=== PATIENT | female | born 1990 | race Caucasian/White ===

== ENCOUNTER 2017-02-12 19:11 | Emergency (ER) | payer OTHER ==
[2017-02-12 22:57] VITALS: BP 112/73
== END 2017-02-12 22:57 | disposition home or self-care (01) ==
LOC: ED 19:11
DX: H92.01 Otalgia, right ear (principal); R51 Headache; J45.909 Unspecified asthma, uncomplicated

== ENCOUNTER 2017-05-15 08:35 | Emergency (ER) | payer OTHER ==
[2017-05-15 10:32] LABS: BASOPHIL % 0.4 % (0-2); PLATELET COUNT 161 x10^3mcL (130-400); RED CELL DISTRIBUTION WIDTH 13.9 % (11.5-14.5)
[2017-05-15 10:34] LABS: microscopic required? YES; urine erythrocyte 3+ (NEGATIVE)
[2017-05-15 10:42] LABS: CALCIUM 9.1 mg/dL (8.5-10.1); CARBON DIOXIDE 28.5 mmol/L (21-32); CHLORIDE SERUM 105 mmol/L (98-107); CREATININE SERUM 0.7 mg/dL (0.6-1.0); GFR1 > 60 mL/min; GLUCOSE SERUM 85 mg/dL (74-106); POTASSIUM SERUM 3.7 mmol/L (3.5-5.1); SODIUM SERUM 142 mmol/L (136-145)
[2017-05-15 10:48] LABS: ALBUMIN 4.4 g/dL (3.4-5.0); ALKALINE PHOSPHATASE 71 U/L (46-116); ALT/SGPT 49 U/L (14-59); AST/SGOT 32 U/L (15-37); BILIRUBIN TOTAL 0.9 mg/dL (0.20-1.00); LIPASE 266 IU/L (73-393); TOTAL PROTEIN, SERUM 8.1 g/dL (6.4-8.2)
[2017-05-15 13:01] VITALS: BP 108/61
== END 2017-05-15 13:01 | disposition home or self-care (01) ==
LOC: ED 08:35
PROVIDERS: Emergency Medicine
DX: R10.33 Periumbilical pain (principal); R11.10 Vomiting, unspecified; R19.7 Diarrhea, unspecified; J45.909 Unspecified asthma, uncomplicated
CPT/HCPCS: J1885; J2405; J7030

== ENCOUNTER 2018-04-18 23:06 | Emergency (ER) | payer OTHER ==
[~2018-04-18] VITALS: Ht 157.5 cm; Wt 71.7 kg
[2018-04-18 23:11] VITALS: Ht 157.5 cm; Wt 71.7 kg
[2018-04-19 00:31] VITALS: BP 96/49
== END 2018-04-19 00:43 | disposition home or self-care (01) ==
LOC: ED 23:06
DX: S10.11XA Abrasion of throat, initial encounter (principal); J45.909 Unspecified asthma, uncomplicated; W22.8XXA Striking against or struck by other objects, initial encounter; Y93.89 Activity, other specified; Y92.89 Other specified places as the place of occurrence of the external cause; Y99.8 Other external cause status

== ENCOUNTER 2018-05-09 14:19 | Emergency (ER) | payer OTHER ==
[~2018-05-09] VITALS: Ht 157.5 cm; Wt 68.5 kg
[2018-05-09 15:00] VITALS: BP 107/57; Ht 157.5 cm; Wt 68.5 kg
== END 2018-05-09 18:51 | disposition home or self-care (01) ==
LOC: ED 14:19
DX: S39.012A Strain of muscle, fascia and tendon of lower back, initial encounter (principal); J45.909 Unspecified asthma, uncomplicated; X50.1XXA Overexertion from prolonged static or awkward postures, initial encounter; Y93.89 Activity, other specified; Y92.89 Other specified places as the place of occurrence of the external cause; Y99.8 Other external cause status
CPT/HCPCS: J1885

== ENCOUNTER 2018-08-01 00:19 | Emergency (ER) | payer OTHER ==
[~2018-08-01] VITALS: Ht 157.5 cm; Wt 72.1 kg
[2018-08-01 00:24] VITALS: Ht 157.5 cm; Wt 72.1 kg
[2018-08-01 04:29] LABS: BASOPHIL % 0.3 % (0-2); PLATELET COUNT 156 x10^3mcL (130-400); RED CELL DISTRIBUTION WIDTH 13.3 % (11.5-14.5)
[2018-08-01 04:32] LABS: CALCIUM 8.7 mg/dL (8.5-10.1); CARBON DIOXIDE 30.1 mmol/L (21-32); CHLORIDE SERUM 108 mmol/L (98-107); CREATININE SERUM 0.6 mg/dL (0.6-1.0); GFR1 > 60 mL/min; GLUCOSE SERUM 87 mg/dL (74-106); POTASSIUM SERUM 3.7 mmol/L (3.5-5.1); SODIUM SERUM 143 mmol/L (136-145)
[2018-08-01 04:37] LABS: ALBUMIN 3.8 g/dL (3.4-5.0); ALKALINE PHOSPHATASE 69 U/L (46-116); ALT/SGPT 101 U/L (14-59); AST/SGOT 112 U/L (15-37); BILIRUBIN TOTAL 0.93 mg/dL (0.20-1.00); LIPASE 177 IU/L (73-393)
[2018-08-01 05:07] LABS: microscopic required? NO
[2018-08-01 05:30] LABS: UA SPECIFIC GRAVITY 1.025 (1.005-1.035); urine erythrocyte NEGATIVE (NEGATIVE)
[2018-08-01 09:18] VITALS: BP 90/54
== END 2018-08-01 09:25 | disposition home or self-care (01) ==
LOC: ED 00:19
PROVIDERS: Emergency Medicine
DX: K80.20 Calculus of gallbladder without cholecystitis without obstruction (principal); R07.89 Other chest pain; J45.909 Unspecified asthma, uncomplicated; Z97.5 Presence of (intrauterine) contraceptive device; Z98.84 Bariatric surgery status
CPT/HCPCS: J2405; J3010; J3490; J7030; Q0092

== ENCOUNTER 2019-07-24 19:39 | Emergency (ER) | payer OTHER ==
[~2019-07-24] VITALS: Ht 160 cm; Wt 72.6 kg
[2019-07-24 19:59] VITALS: Ht 160 cm; Wt 72.6 kg
[2019-07-24 20:40] VITALS: BP 109/60
== END 2019-07-24 20:40 | disposition home or self-care (01) ==
LOC: ED 19:39
DX: F41.9 Anxiety disorder, unspecified (principal)

== ENCOUNTER 2020-05-27 23:23 | Emergency (ER) | payer OTHER ==
[~2020-05-27] VITALS: Ht 160 cm; Wt 83.9 kg
[2020-05-27 23:39] VITALS: Ht 160 cm; Wt 83.9 kg
[2020-05-28 00:45] LABS: PLATELET COUNT 264 x10^3mcL (179-408)
[2020-05-28 00:51] LABS: BASOPHIL % 2.2 % (0.2-1.3); RED CELL DISTRIBUTION WIDTH 15.1 % (12.3-17.7)
[2020-05-28 01:03] LABS: UA SPECIFIC GRAVITY >=1.030 (1.005-1.035); microscopic required? YES; urine erythrocyte NEGATIVE (NEGATIVE)
[2020-05-28 01:10] LABS: CALCIUM 9.5 mg/dL (8.5-10.1); CARBON DIOXIDE 28.4 mmol/L (21-32); CHLORIDE SERUM 106 mmol/L (98-107); CREATININE SERUM 0.6 mg/dL (0.6-1.0); GFR1 > 60 mL/min; GLUCOSE SERUM 88 mg/dL (74-106); POTASSIUM SERUM 4.1 mmol/L (3.5-5.1); SODIUM SERUM 141 mmol/L (136-145)
[2020-05-28 01:14] LABS: ALKALINE PHOSPHATASE 149 U/L (46-116); ALT/SGPT 33 U/L (14-59); AST/SGOT 27 U/L (15-37); BILIRUBIN TOTAL 0.29 mg/dL (0.20-1.00); LIPASE 249 IU/L (73-393); TOTAL PROTEIN, SERUM 7.3 g/dL (6.4-8.2)
[2020-05-28 01:16] LABS: ALBUMIN 3.2 g/dL (3.4-5.0)
[2020-05-28 02:57] VITALS: BP 102/64
== END 2020-05-28 03:00 | disposition home or self-care (01) ==
LOC: ED 23:23
PROVIDERS: Emergency Medicine
DX: K44.9 Diaphragmatic hernia without obstruction or gangrene (principal); K59.00 Constipation, unspecified; K21.9 Gastro-esophageal reflux disease without esophagitis; J45.909 Unspecified asthma, uncomplicated